=== PATIENT | female | born 1995 | race Caucasian/White ===

== ENCOUNTER 2023-08-13 11:25 | Outpatient (REF) | payer MEDICAID, SELFPAY ==
[2023-08-13 14:00] LABS: Estimated Average Glucose 100 mg/dL; Hemoglobin A1c % 5.1 % (<6.0)
[2023-08-13 14:02] LABS: Alanine Aminotransferase 21 U/L (0-31); Albumin Level 4.2 g/dL (3.5-5.0); Alkaline Phosphatase 94 U/L (39-117); Anion Gap 13 (12-20); Aspartate Amino Transferase 16 U/L (5-31); Bilirubin Total 0.3 mg/dL (0.0-1.0); Blood Urea Nitrogen 16 mg/dL (9-16); Calcium 9.5 mg/dL (8.4-10.2); Carbon Dioxide 25 mmol/L (22-29); Chloride 105 mmol/L (96-108); Estimated Glomerular Filt Rate > 60; Glucose Random 82 mg/dL (60-115); Potassium 4.1 mmol/L (3.3-5.1); Sodium 139 mmol/L (135-145)
[2023-08-13 14:03] LABS: TSH reflex Free T4 0.37 uIU/mL (0.32-4.0)
[2023-08-14 04:48] LABS: HIV AB/AG Nonreactive (Nonreactive); HIV Num 1 0.15 S/CO (0.00-0.99); ~Hepatitis C Antibody Nonreactive (Nonreactive)
[2023-08-16 08:14] LABS: TS Negative Control Passed; TS Panel A 0; TS Panel B 0; TS Positive Control Passed; TSpotTB Negative (Negative)
== END 2023-08-13 11:26 | disposition home or self-care (01) ==
LOC: HO.HHCL 11:25
PROVIDERS: Visit Provider Family Medicine
DX: E66.3 Overweight (principal); Z83.3 Family history of diabetes mellitus; Z11.3 Encounter for screening for infections with a predominantly sexual mode of transmission; Z11.1 Encounter for screening for respiratory tuberculosis
CPT/HCPCS: 36415; 80053; 83036; 84443; 86481; 86803; 87389

== ENCOUNTER 2023-11-12 09:57 | Emergency (ER) | payer MEDICAID, SELFPAY ==
--- NOTE | ~2023-11-12 | XR_ITS ---
EXAMINATION: XR KNEE, RIGHT CLINICAL INFORMATION: Injury, pain COMPARISON: None available. TECHNIQUE: Four views of the right knee. FINDINGS: The tricompartment joint space is maintained. There is moderate suprapatellar joint effusion. No loose bodies, acute fracture or dislocation seen. No bony erosive changes No soft tissue calcification. XR/XR knee RT 3V IMPRESSION: Moderate suprapatellar joint effusion. No visible acute fracture, dislocation or subluxation.
[2023-11-12 10:17] VITALS: BP 109/73; PULSE 85; RESP 16; TEMP 37; O2SAT 99; BMI 26.3
--- NOTE | 2023-11-12 13:08 | ED_ITS ---
HPI - Extremity Injury (Lower) General Chief Complaint: Extremity Injury, Lower Stated Complaint: R Knee Injury Time Seen by Provider: 11/12/23 11:23 Source: patient and RN notes reviewed Mode of arrival: ambulatory Limitations: no limitations History of Present Illness HPI Narrative: This is a 28-year-old female, with a history of autism spectrum disorder, presenting to the emergency department with complaints of right knee pain since yesterday. Patient states that while she was walking she accidentally hit her right knee on a table. She states that she has had increased pain and swelling in her right knee since the injury. Pain worsens with weight-bearing. No history of similar symptoms in the past. Denies any chest pain, shortness breast, fevers, chills, Related Data Previous Rx's Medication Instructions Recorded acetaminophen 650 mg 650 mg PO Q8H PRN pain #30 tabs 11/12/23 tablet,extended release (Tylenol 8 Hour) ibuprofen 600 mg tablet 600 mg PO Q6H PRN pain #30 tabs 11/12/23 Allergies Allergy/AdvReac Type Severity Reaction Status Date / Time No Known Allergies Allergy Verified 11/12/23 10:15 Review of Systems Review of Systems: Yes all other systems are reviewed and are negative Constitutional: Constitutional: Reports as per [facility] Social History Social History Advance Directives: No Physical Exam Vital Signs: Vital Signs: Last Vital Signs Temp 98.6 F 11/12/23 10:17 Pulse 85 11/12/23 10:17 Resp 16 11/12/23 10:17 BP 109/73 11/12/23 10:17 Pulse Ox 99 11/12/23 10:17 O2 Del Method Room Air 11/12/23 10:17 BMI result Body Mass Index 26.3 Const: General: cooperative, comfortable and no acute distress Orientation/consciousness: patient oriented x3 Limitations: no limitations HEENT: Head: Yes normal to inspection, Yes normocephalic and Yes atraumatic Ears: hearing grossly normal bilaterally General nose exam: Normal external nose present Face and sinus: Yes normal facial exam Mouth: Normal oral and palatal mucosa present, oropharynx normal and moist mucous membranes Throat: Yes posterior oropharynx normal Eyes: General: appearance normal, both eyes and all related structures Eyelids: Yes eyelids normal Conjunctivae: conjunctivae normal Sclerae: sclerae normal Pupils: Equal, round and reactive pupils present EOM: EOMs intact bilaterally Neck: Neck: Yes normal visual inspection, Yes full ROM and Yes no lymphadenopathy Lymphatic: no lymphadenopathy noted Chest: Chest palpation & inspection: normal inspection of the chest Resp: Effort & Inspection: normal respiratory effort and able to speak in complete sentences Auscultation: clear to auscultation bilaterally, no crackles, no rales, no rhonchi and no wheezes Cardio: Rate: regular rate Rhythm: regular rhythm Heart sounds: S1 normal heart sound present and S2 normal heart sound present GI: Inspection: Yes normal to inspection Skin: General skin exam: no rashes or lesions noted Trauma: no lacerations or abrasions Wounds: no wounds Neuro: General: patient oriented x3 and moves all extremities Cranial nerves: Yes Equal, round and reactive pupils present Extrem: Other: Right knee with moderate edema with tenderness palpation along the medial and lateral joint line, full range of motion, negative anterior-posterior drawer test, negative varus and valgus strain laxity. Distal sensation circulation intact. Negative Homans sign, no calf tenderness palpation. DP pulse 2 + General: Yes normal to inspection Right upper extremity: normal to inspection Left upper extremity: normal to inspection Right lower extremity: normal to inspection Left lower extremity: normal to inspection Medications Administered Discontinued Medications Generic Name Dose Route Start Last Admin Trade Name Freq PRN Reason Stop Dose Admin Ibuprofen 600 mg 11/12/23 13:08 11/12/23 13:13 Ibuprofen 600 Mg Tablet PO 11/12/23 13:09 600 mg ONCE ONE Administration Medical Decision Making Medical Decision Making MDM Narrative: 28-year-old female presenting to the emergency department with complaints of right knee pain status post hitting it on a table yesterday. On arrival, vital signs within normal limits. Patient has moderate edema noted to her right knee with tenderness palpation along the medial and lateral joint line, full range of motion of the knee joint. No evidence of erythema or warmth or infection. Essential diagnoses include fracture, contusion, sprain, strain, less likely septic arthritis. X-ray was obtained revealing moderate joint effusion, otherwise no bony abnormalities. Patient was placed in Angel wrap, given crutches and Motrin. Advised follow-up with orthopedics as needed. Patient understands and agrees with plan. Patient stable for discharge. Differential Diagnosis Differential Diagnoses: The differential diagnosis associated with the presentation includes See above Radiology Impression Discussion of test interpretation with radiology: I have reviewed the radiologist's reading. Radiologist Impression: XR/XR knee RT 3V IMPRESSION: Moderate suprapatellar joint effusion. No visible acute fracture, dislocation or subluxation. Dictated By: Benja Gilliland MD Discharge Plan Discharge Clinical Impression: Knee pain, right Patient Disposition: Home, Self-Care Instructions: Knee Pain (ED) Additional Instructions: You were seen in the emergency department due to knee pain. Your x-ray shows swelling, does not show any broken bones. Please rest, ice, use Angel wrap, and elevate your leg. Use crutches to help with weight-bearing. Follow-up with your primary care physician regarding this visit. I am also giving you a referral to Orthopedics, call today to make an appointment for follow-up. Alternate between ibuprofen and Tylenol as needed for pain. If any new or worsening symptoms occur including but not limited to worsening knee pain, fevers, chills, redness in your knee, chest pain, shortness of breath, please return for re-evaluation. Prescriptions: New ibuprofen 600 mg tablet 600 mg PO Q6H PRN (Reason: pain) Qty: 30 0RF acetaminophen [Tylenol 8 Hour] 650 mg tablet extended release 650 mg PO Q8H PRN (Reason: pain) Qty: 30 0RF Referrals: [facility] [Provider Group] Discharge Date/Time: 11/12/23 13:37
[2023-11-12] MEDS: Ibuprofen 600 MG TABLET PO (13:13)
--- NOTE | 2023-11-12 13:36 | PC.NURSE ---
family rushed patient d/c paperwork, unable to get last set of vitals, patient family said they had to leave due to their ride. provider aware
== END 2023-11-12 13:37 | disposition home or self-care (01) ==
PROVIDERS: Emergency Provider Emergency Medicine; PCP Family Medicine
DX: M25.561 Pain in right knee (principal)
CPT/HCPCS: 73562; 99282; 99283

== ENCOUNTER 2023-11-28 08:31 | Outpatient (REF) | payer MEDICAID, SELFPAY ==
--- NOTE | ~2023-11-28 | XR_ITS ---
EXAMINATION: XR KNEE, RIGHT CLINICAL INFORMATION: Pain. COMPARISON: Radiographs dated 11/12/2023. TECHNIQUE: AP standing and axial views of the right knee are submitted. FINDINGS: No fracture or joint effusion. Alignment is anatomic. Joint spaces are maintained. No abnormal soft tissue calcification. XR/XR knee RT 2V IMPRESSION: Normal right knee. EXAMINATION: XR KNEE, LEFT CLINICAL INFORMATION: Pain. COMPARISON: Radiographs dated 11/11/2022 4. TECHNIQUE: AP standing and axial views of the left knee are submitted. FINDINGS: No fracture or joint effusion. Alignment is anatomic. Joint spaces are maintained. No abnormal soft tissue calcification. IMPRESSION: Normal left knee. The AP view is somewhat caudally angled; consider a dedicated left tunnel view for further evaluation of the lateral and medial joint space compartments.
--- NOTE | ~2023-11-28 | XR_ITS ---
EXAMINATION: XR KNEE, RIGHT CLINICAL INFORMATION: Pain. COMPARISON: Radiographs dated 11/12/2023. TECHNIQUE: AP standing and axial views of the right knee are submitted. FINDINGS: No fracture or joint effusion. Alignment is anatomic. Joint spaces are maintained. No abnormal soft tissue calcification. XR/XR knee LT 2V IMPRESSION: Normal right knee. EXAMINATION: XR KNEE, LEFT CLINICAL INFORMATION: Pain. COMPARISON: Radiographs dated 11/11/2022 4. TECHNIQUE: AP standing and axial views of the left knee are submitted. FINDINGS: No fracture or joint effusion. Alignment is anatomic. Joint spaces are maintained. No abnormal soft tissue calcification. IMPRESSION: Normal left knee. The AP view is somewhat caudally angled; consider a dedicated left tunnel view for further evaluation of the lateral and medial joint space compartments.
== END 2023-11-28 08:32 | disposition home or self-care (01) ==
LOC: HO.HOSX 08:31
PROVIDERS: Visit Provider Physician Assistant
DX: M25.562 Pain in left knee (principal); M25.561 Pain in right knee; M70.41 Prepatellar bursitis, right knee
CPT/HCPCS: 73560; 99212

== ENCOUNTER 2023-11-28 10:16 | Outpatient (AMB) | payer MEDICAID, SELFPAY ==
--- NOTE | 2023-11-28 10:54 | A.OFFVIS_ITS ---
Intake Vital Signs 11/28/23 11:01 Height 5 ft Weight 134 lb BMI 26.2 Intake Visit Reasons: N/P right knee pain Intake Note: Nola a 28 year old female who presents today as a new patient for an evaluation of right knee pain. Patient reports that she hit her knee against a dresser about 2 weeks ago. She presented to [facility] ED where xrays were taken and referred to orthopedics. Her pain is located at the anterior aspect of knee. Finds relief with ibuprofen and Tylenol. Allergies No Known Allergies Allergy (Verified 11/28/23 11:01) Medication List - Last Reconciled 11/28/23 by Tyshawn Wheeler PA-C acetaminophen ER (Tylenol 8 Hour) 650 mg PO Q8H PRN ibuprofen 600 mg PO Q6H PRN HPI N/P right knee pain HPI Details 28 yo female presents to the office toda y for pain in the right knee which started 2 weeks ago after hitting her knee on a dresser. She was seen in the ED, xrays obtained and she was referred to our office for ortho eval. She states since the incident, she has pain with extension and bending. She has been taking Ibu bid without relief. [facility] Social History (Updated 11/28/23 @ 10:57 by LISA Garcia) Patient Tobacco Use Status: Never used Tobacco Current occupational status: employed Current occupation: right hand dominant Review of Systems Const All systems reviewed & are unremarkable except as noted in HPI and below Physical Exam Vital Signs: BMI result Body Mass Index 26.2 Const General: cooperative and no acute distress Orientation/consciousness: patient oriented x3 Resp Effort & Inspection: normal respiratory effort and able to speak in complete sentences Cardio Peripheral pulses: Peripheral pulses 2+ throughout Neuro General: patient oriented x3 Extrem Other: Right knee normal to inspection. She does have trace amount of prepatellar bursitis with mild tenderness to palpation. No erythema. She has full range of motion with mild discomfort in hyperflexion. Calf is supple nontender neurovascularly intact. Results Reviewed Results Reviewed: X-rays of the right knee obtained in the office today are negative for any acute or chronic abnormalities. Assessment & Plan Assessment & Plan (1) Prepatellar bursitis of right knee: Code(s): M70.41 - Prepatellar bursitis, right knee Plan: I recommend increasing activity as tolerated she can use an Angel wrap to help with compression of the bursitis. She will continue to ice as needed. If symptoms persist over the next 4-6 weeks she will contact our office otherwise follow up as needed. Orders: Orders XR knee LT 2V Today M25.562 - Pain in left knee Coding Level of Care Code New Pt Level 3 (54637) Diagnoses Prepatellar bursitis of right knee M70.41
[2023-11-28 11:01] VITALS: BMI 26.2
== END 2023-11-28 11:30 | disposition home or self-care (01) ==
PROVIDERS: PCP Family Medicine; Visit Provider Physician Assistant
DX: M70.41 Prepatellar bursitis, right knee (principal)
CPT/HCPCS: 99203

== ENCOUNTER 2024-02-04 09:37 | Emergency (ER) | payer MEDICAID, SELFPAY ==
--- NOTE | 2024-02-04 | ECG_ITS ---
Test Reason : CHEST PAIN Blood Pressure : / mmHG Vent. Rate : 080 BPM Atrial Rate : 080 BPM P-R Int : 164 ms QRS Dur : 078 ms QT Int : 380 ms P-R-T Axes : 002 090 022 degrees QTc Int : 438 ms Normal sinus rhythm Rightward axis Borderline ECG When compared to the previous EKG of No significant changes seen Referred By: Generic ED Physician Electronically Signed By:INOCENCIO MORGAN MD
--- NOTE | ~2024-02-04 | XR_ITS ---
EXAMINATION: XR CHEST CLINICAL INFORMATION: Patient states she has been having chest pain for one week. COMPARISON: None available. TECHNIQUE: 2 views of the chest were obtained. FINDINGS: Mild S-shaped thoracolumbar scoliosis. No pleural effusion. There is no gross pneumothorax. No focal consolidation to suggest pneumonia. Heart size is normal. XR/XR chest 2V IMPRESSION: No evidence of pneumonia. This study was presented today February 04, 2024 for interpretation. STAT results provided at this time as requested by referring provider.
[2024-02-04 09:58] VITALS: BP 107/60; PULSE 82; RESP 20; TEMP 36.6; O2SAT 97; BMI 22.7
[2024-02-04 10:20] LABS: MANUAL DIFF FLAG NO
--- NOTE | 2024-02-04 10:20 | ED.CHESTPAIN ---
HPI - Chest Pain General Chief Complaint: Chest Pain Stated Complaint: Chest pain, vomiting Time Seen by Provider: 02/04/24 10:17 Source: patient and RN notes reviewed Mode of arrival: ambulatory Limitations: no limitations History of Present Illness ED Provider: Jacinda Kim PA-C HPI narrative: This is a 28-year-old female, with no known medical problems, who presents emergency department with complaints of 1 week of intermittent chest pain. Patient states that she developed this chest pain at random, states that typically occurs after eating. She describes his pain as a dull pain, denies pain radiation. She states she has had no fevers, chills, dizziness, blurred vision, shortness for breath, palpitations, abdominal pain, nausea, vomiting or diarrhea. She denies taking any medications at home to treat her current symptoms. Denies risk of . She has not on control. No recent travel, surgeries, hospitalizations. She does not smoke. She does not drink alcohol. No other complaints or concerns at this time. MD complaint: chest pain Onset (ago): day(s) Timing of current episode: episodic Prior episodes: Yes Onset: after eating Pain location: substernal Pain radiation: none Quality: dull Risk Factors Coronary artery disease risk factors: none Thoracic aortic dissection risk factors: none Related Data On Oral Contraceptives: No Previous Rx's ?Medication ?Instructions ?Recorded acetaminophen 650 mg 650 mg PO Q8H PRN pain #30 tabs 11/12/23 tablet,extended release (Tylenol 8 Hour) ibuprofen 600 mg tablet 600 mg PO Q6H PRN pain #30 tabs 11/12/23 Allergies Allergy/AdvReac Type Severity Reaction Status Date / Time No Known Allergies Allergy Verified 02/04/24 10:00 Review of Systems Review of Systems: Yes all other systems are reviewed and are negative [facility] Social History Social History (Updated 11/28/23 @ 10:57 by LISA Garcia) Patient Tobacco Use Status: Never used Tobacco Advance Directives: No Advance Directives Information Provided: Yes Do you have a plan to hurt others: No Plan Current occupational status: employed Current occupation: right hand dominant Physical Exam Vital Signs: Vital Signs: Last Vital Signs Temp 98.8 F 02/04/24 10:37 Pulse 71 02/04/24 13:46 Resp 16 02/04/24 13:46 BP 107/73 02/04/24 13:46 Pulse Ox 99 02/04/24 13:46 O2 Del Method Room Air 02/04/24 13:46 BMI result Body Mass Index 22.7 Course Reevaluation(s) Reevaluation #1: Labs returned, patient has no leukocytosis, stable H&H, chemistry within normal limits. Troponin less than 2.7, does not need repeat as symptoms have been ongoing for the last week. Chest x-ray unremarkable. EKG nonischemic. And patient's symptoms occur after eating, this may be attributed to GERD/gastritis. Patient has been completely asymptomatic in the department today therefore advised with strict return precautions. Does not require any emergent further workup. Advised follow-up with PCP outpatient. Patient understands and agrees with plan. Patient stable for discharge. Time: 14:28 Medical Decision Making Medical Decision Making [facility] Narrative: This is a 28-year-old female who presents emergency department with complaints of 1 week of intermittent chest pain, substernal, patient states that the pain worsens after she eats at times. On arrival, patient nontoxic appearing, alert and oriented x4, under no distress. She does not currently have any chest pain. She is PERC negative. She has not tachycardic or hypoxic. Pain is not pleuritic in nature. Anterior chest wall is not tender. Differential diagnoses include ACS-unlikely as patient has no risk factors, PE,-unlikely secondary to no risk factors, and current presentation. Other differentials include spontaneous pneumothorax, costochondritis, GERD/gastritis. Consideration of also gallstones however patient has no right upper quadrant pain and states pain is substernal. Plan: Labs, Differential Diagnosis Differential Diagnoses: The differential diagnosis associated with the presentation includes See above Lab Data MDM Lab Attestation statement: I reviewed the patient's lab results. No leukocytosis, stable H&H, chemistry within normal limits, negative troponin 02/04/24 10:18 02/04/24 10:18 Labs: Lab Results 02/04/24 Range/Units 10:18 WBC 9.4 (4.8-10.8) X10*3/uL RBC 4.61 (4.20-5.50) X10*6/uL Hgb 13.6 (12.0-16.0) g/dl Hct 39.8 (37.0-47.0) % MCV 86.3 (80.0-98.0) fL MCH 29.5 (27.0-33.0) pg MCHC 34.2 (31.0-35.0) g/dl RDW 12.7 (11.0-16.0) % Plt Count 353 (160-400) X10*3/uL MPV 9.6 (9.4-12.3) fL Immature Gran % (Auto) 0.3 (0.0-0.4) % Neut % (Auto) 68.7 (45-73) % Lymph % (Auto) 22.2 (20-40) % [place] % (Auto) 6.1 (2-11) % Eos % (Auto) 1.7 (0-4) % Baso % (Auto) 1.0 (0-2) % Lymph # (Auto) 2.1 (1.2-4.9) X10*3/uL [place] # (Auto) 0.6 (0.1-1.2) X10*3/uL Eos # (Auto) 0.2 (0.0-0.4) X10*3/uL Baso # (Auto) 0.1 (0.0-0.2) X10*3/uL Abs Immat Gran (auto) 0.03 (0.00-0.03) X10*3/uL Absolute Neuts (auto) 6.4 (2.0-8.3) x10*3/uL Absolute Nucleated RBC 0.000 (0.0-0.012) X10*3/uL Nucleated RBC % (auto) 0.0 (0.0-0.2) /100WBC Sodium 141 (135-145) mmol/L Potassium 4.0 (3.3-5.1) mmol/L Chloride 110 H (96-108) mmol/L Carbon Dioxide 24 (22-29) mmol/L Anion Gap 11 L (12-20) BUN 10 (9-16) mg/dL Creatinine 0.69 (0.5-1.4) mg/dL Estim Creat Clear Calc 103.9 Estimated GFR > 60 Random Glucose 85 (60-115) mg/dL Calcium 9.2 (8.4-10.2) mg/dL Magnesium 2.1 (1.6-2.6) mg/dL Total Bilirubin 0.5 (0.0-1.0) mg/dL AST 12 (5-31) U/L ALT 14 (0-31) U/L Alkaline Phosphatase 91 (39-117) U/L Troponin I High Sens < 2.7 (<3.5-17.0) ng/L Total Protein 7.6 (6.5-8.0) g/dL Albumin 4.0 (3.5-5.0) g/dL Lipase 19 (8-78) U/L Beta HCG, Quant < 2 mIU/mL Independent Interpretation I performed an independent interpretation of an: EKG Interpretation: EKG normal sinus rhythm at a ventricular rate of 80 beats per minute, KS interval 164, QT QTC 380/438. No ST elevation or depression. Radiology Impression Discussion of test interpretation with radiology: I have reviewed the radiologist's reading. Radiologist Impression: XR/XR chest 2V IMPRESSION: No evidence of pneumonia. This study was presented today February 04, 2024 for interpretation. STAT results provided at this time as requested by referring provider. Dictated By: Grace Smalls MD Discharge Plan Discharge Clinical Impression: Chest pain Patient Disposition: Home, Self-Care Instructions: Chest Pain (ED) Additional Instructions: You were seen in the emergency department due to ongoing intermittent chest pain Your workup today was reassuring. Your chest x-ray was normal. Your EKG was normal. Please follow-up with your primary care physician regarding this visit. If you do develop symptoms, you may try antacids to help with this alleviates any of your symptoms. If any new or worsening symptoms occur including but not limited to worsening chest pain, shortness breath, dizziness, blurred vision, please return for re-evaluation. Prescriptions: No Action ibuprofen 600 mg tablet 600 mg PO Q6H PRN (Reason: pain) Qty: 30 0RF acetaminophen [Tylenol 8 Hour] 650 mg tablet extended release 650 mg PO Q8H PRN (Reason: pain) Qty: 30 0RF Print Language: Welsh
[2024-02-04 10:25] LABS: Basophils Absolute Auto 0.1 X10*3/uL (0.0-0.2); Eosinophils Absolute Auto 0.2 X10*3/uL (0.0-0.4); Eosinophils Percent Auto 1.7 % (0-4); Hematocrit 39.8 % (37.0-47.0); Hemoglobin 13.6 g/dl (12.0-16.0); Imm Gran Abs Auto 0.03 X10*3/uL (0.00-0.03); Imm Gran Pct Auto 0.3 % (0.0-0.4); Lymphocytes Absolute Auto 2.1 X10*3/uL (1.2-4.9); Lymphocytes Percent Auto 22.2 % (20-40); Mean Corpuscular HGB Conc 34.2 g/dl (31.0-35.0); Mean Corpuscular Hemoglobin 29.5 pg (27.0-33.0); Mean Corpuscular Volume 86.3 fL (80.0-98.0); Mean Platelet Volume 9.6 fL (9.4-12.3); Monocytes Absolute Auto 0.6 X10*3/uL (0.1-1.2); Monocytes Percent Auto 6.1 % (2-11); Neutrophils Absolute Auto 6.4 x10*3/uL (2.0-8.3); Neutrophils Percent Auto 68.7 % (45-73); Platelet Count 353 X10*3/uL (160-400); Red Blood Count 4.61 X10*6/uL (4.20-5.50); Red Cell Distribution Width 12.7 % (11.0-16.0); White Blood Count 9.4 X10*3/uL (4.8-10.8)
[2024-02-04 10:37] VITALS: BP 111/64; PULSE 74; RESP 16; TEMP 37.1; O2SAT 98
[2024-02-04 10:38] LABS: Alanine Aminotransferase 14 U/L (0-31); Alkaline Phosphatase 91 U/L (39-117); Anion Gap 11 (12-20); Aspartate Amino Transferase 12 U/L (5-31); Bilirubin Total 0.5 mg/dL (0.0-1.0); Blood Urea Nitrogen 10 mg/dL (9-16); Calcium 9.2 mg/dL (8.4-10.2); Carbon Dioxide 24 mmol/L (22-29); Chloride 110 mmol/L (96-108); Creatinine Clr Calc Pharmacy 103.9; Estimated Glomerular Filt Rate > 60; Glucose Random 85 mg/dL (60-115); Magnesium 2.1 mg/dL (1.6-2.6); Sodium 141 mmol/L (135-145); Total Protein 7.6 g/dL (6.5-8.0)
[2024-02-04 11:47] LABS: Lipase 19 U/L (8-78)
[2024-02-04 11:56] LABS: Troponin-I High Sensitivity < 2.7 ng/L (<3.5-17.0)
[2024-02-04 11:58] LABS: HCG Quantitative < 2 mIU/mL
[2024-02-04 13:46] VITALS: BP 107/73; PULSE 71; RESP 16; O2SAT 99
[2024-02-04 14:48] VITALS: BP 104/71; PULSE 79; RESP 16; TEMP 36.9; O2SAT 100
== END 2024-02-04 14:51 | disposition home or self-care (01) ==
PROVIDERS: Physician Assistant Medical; Emergency Provider Emergency Medicine; PCP Family Medicine
DX: R07.9 Chest pain, unspecified (principal)
CPT/HCPCS: 36415; 71046; 80053; 83690; 83735; 84484; 84702; 85025; 93005; 99283

== ENCOUNTER → 2024-02-04 09:42 | Outpatient (BNV) | payer MEDICAID, SELFPAY | PROVIDERS: Emergency Provider Emergency Medicine; PCP Family Medicine; Visit Provider Internal Medicine Cardiovascular Disease | DX: R07.9 Chest pain, unspecified (principal) | CPT/HCPCS: 93010 ==

== ENCOUNTER 2024-08-18 10:54 | Outpatient (REF) | payer MEDICAID, SELFPAY ==
[2024-08-18 13:46] LABS: Estimated Average Glucose 100 mg/dL; Hemoglobin A1C 103.6726 umol/L; Hemoglobin A1c % 5.1 % (<6.0); Total Hemoglobin (HGBA1C) 3234.8479 umol/L
[2024-08-18 14:02] LABS: Alanine Aminotransferase 19 U/L (0-31); Albumin Level 4.3 g/dL (3.5-5.0); Alkaline Phosphatase 104 U/L (39-117); Anion Gap 8 (12-20); Aspartate Amino Transferase 18 U/L (5-31); Bilirubin Total 0.3 mg/dL (0.0-1.0); Blood Urea Nitrogen 13 mg/dL (9-16); Calcium 9.6 mg/dL (8.4-10.2); Carbon Dioxide 26 mmol/L (22-29); Chloride 110 mmol/L (96-108); Cholesterol 167 mg/dL (<200); Estimated Glomerular Filt Rate > 60; Glucose Random 79 mg/dL (60-115); HDL Cholesterol 41 mg/dL (>40); LDL Cholesterol Calculated 97 mg/dL (<100); Sodium 140 mmol/L (135-145); Total Protein 8.1 g/dL (6.5-8.0); Triglycerides 149 mg/dL (<150)
[2024-08-18 14:39] LABS: Reflex LDLD? No
[2024-08-21 14:33] LABS: TS Negative Control Passed; TS Panel A 0; TS Panel B 0; TS Positive Control Passed; TSpotTB Negative (Negative)
== END 2024-08-18 10:55 | disposition home or self-care (01) ==
LOC: HO.HHCL 10:54
PROVIDERS: Visit Provider Family Medicine
DX: Z13.1 Encounter for screening for diabetes mellitus (principal); E66.3 Overweight; L21.9 Seborrheic dermatitis, unspecified; Z11.1 Encounter for screening for respiratory tuberculosis
CPT/HCPCS: 36415; 80053; 80061; 83036; 86481